=== PATIENT | male | born 1940 | race Caucasian/White ===

== ENCOUNTER 2016-04-11 22:54 | Emergency (ER) | payer MEDICARE, OTHER ==
[2015-01-17 07:13] VITALS: BMI 31.4
[~2016-04-11 22:54] MED LIST: BAYER CHEWABLE81 MG PO; CHANTIX0.5 MG PO; COREG 3.1253.125 MG GT; CRESTOR40 MG PO; CYMBALTA60 MG PO; LANTUS SOL100 UNIT/1 SC; NEURONTIN 300300 MG PO; NITROQUICK0.4 MG SL; NOVOLIN N100 U/ML; PLAVIX75 MG PO; PLETAL100 MG PO; PROTONIX40 MG PO; RANEXA500 MG PO
[2016-04-11 23:44] LABS: BASOPHILS 0.4 % (0.0-2.0); HEMATOCRIT 38.3 % (42.0-54.0); HEMOGLOBIN 12.6 g/dL (13.5-17.5); IMMATURE GRANULOCYTES 0.8 % (0-5); LYMPHOCYTES 16.5 % (15-50); MCH 29.8 pg (26.0-34.0); MCHC 32.9 g/dL (31.0-37.0); MCV 90.5 fL (80.0-100.0); MEAN PLATELET VOLUME 8.8 fL (7.4-10.4); MONOCYTES 7.5 % (2-11); NEUTROPHILS 72.8 % (40-80); RBC 4.23 10x6/uL (4.20-6.10); RDW 13.3 % (11.5-14.5)
[2016-04-11 23:49] LABS: PLATELET COUNT 176 10x3/uL (130-400)
[2016-04-11 23:54] LABS: APTT 26.8 SECONDS (22.8-39.4); INR 0.93 (0.85-1.17); PROTIME 12.3 SECONDS (11.6-15.0)
[2016-04-11 23:58] LABS: ALBUMIN 4.5 g/dL (3.4-5.0); ANION GAP 12.4 mmol/L (8-16); BILIRUBIN - TOTAL 0.4 mg/dL (0.2-1.3); CALCIUM 9.3 mg/dL (8.5-10.1); CARBON DIOXIDE 30.6 mmol/L (21.0-32.0); CREATININE - SERUM 1.9 mg/dL (0.6-1.3); PROTEIN - SERUM 8.5 g/dL (6.4-8.2)
[2016-04-12 00:06] LABS: APPEARANCE CLEAR (CLEAR); BILIRUBIN NEGATIVE (NEGATIVE); COLOR YELLOW (YELLOW); GLUCOSE 500 mg/dL (NEGATIVE); KETONE NEGATIVE (NEGATIVE); LEUKOCYTE ESTERASE NEGATIVE (NEGATIVE); NITRITE NEGATIVE (NEGATIVE); PROTEIN NEGATIVE (NEGATIVE); UROBILINOGEN NORMAL (NORMAL)
[2016-04-12 00:25] LABS: TROPONIN-I 0.018 ng/mL (0.000-0.060)
== END 2016-04-12 02:35 | disposition home or self-care (01) ==
LOC: D.ER 22:54
PROVIDERS: Emergency Medicine
DX: S00.03XA Contusion of scalp, initial encounter (principal); V09.9XXA Pedestrian injured in unspecified transport accident, initial encounter; Y93.89 Activity, other specified; Y92.014 Private driveway to single-family (private) house as the place of occurrence of the external cause; S06.0X1A Concussion with loss of consciousness of 30 minutes or less, initial encounter; J32.0 Chronic maxillary sinusitis; I10 Essential (primary) hypertension; I25.10 Atherosclerotic heart disease of native coronary artery without angina pectoris; E11.9 Type 2 diabetes mellitus without complications; I50.9 Heart failure, unspecified; E78.5 Hyperlipidemia, unspecified; K21.9 Gastro-esophageal reflux disease without esophagitis; G62.9 Polyneuropathy, unspecified

== ENCOUNTER 2016-04-12 10:11 | Emergency (ER) | payer MEDICARE, OTHER ==
[2015-01-17 07:13] VITALS: BMI 31.4
== END 2016-04-12 15:10 | disposition home or self-care (01) ==
LOC: D.ER 10:11
DX: S09.90XD Unspecified injury of head, subsequent encounter (principal); V09.9XXD Pedestrian injured in unspecified transport accident, subsequent encounter; R11.2 Nausea with vomiting, unspecified; I25.10 Atherosclerotic heart disease of native coronary artery without angina pectoris; I50.9 Heart failure, unspecified; E11.9 Type 2 diabetes mellitus without complications; K21.9 Gastro-esophageal reflux disease without esophagitis; I10 Essential (primary) hypertension; E78.5 Hyperlipidemia, unspecified; G62.9 Polyneuropathy, unspecified

== ENCOUNTER → 2016-07-07 13:14 | Outpatient (CLI) | payer MEDICARE, OTHER ==
[2015-01-17 07:13] VITALS: BMI 31.4
== END | disposition home or self-care (01) ==
LOC: D.CT 06-15 11:00
DX: I73.9 Peripheral vascular disease, unspecified (principal)

== ENCOUNTER → 2016-07-28 10:56 | Outpatient (CLI) | payer MEDICARE, OTHER ==
[2015-01-17 07:13] VITALS: BMI 31.4
== END | disposition home or self-care (01) ==
LOC: D.RAD 07-27 08:00
DX: M79.661 Pain in right lower leg (principal)